=== PATIENT | male | born 1975 | race Caucasian/White ===

== ENCOUNTER 2022-05-07 13:14 | Emergency (ER) | payer MEDICAID ==
[~2022-05-07] VITALS: Ht 190.5 cm; Wt 90.9 kg
[2022-05-07 13:53] LABS: BASOPHILS # (AUTO) 0.1 X10'3 (0-0.2); BASOPHILS % (AUTO) 0.8 % (0-1); EOSINOPHILS # (AUTO) 0.2 X10'3 (0-0.9); EOSINOPHILS % (AUTO) 3.5 % (0-6); HEMOGLOBIN 15.2 g/dl (14.0-17.9); LYMPHOCYTES # (AUTO) 1.8 X10'3 (1.1-4.8); LYMPHOCYTES % (AUTO) 26.5 % (21-51); MEAN CORPUSCULAR HEMOGLOBIN 32.6 PG (27.0-31.0); MEAN CORPUSCULAR HGB CONC 33.7 g/dL (33.0-36.5); MEAN CORPUSCULAR VOLUME 96.7 FL (78-98); MEAN PLATELET VOLUME 7.1 FL (7.4-10.4); MONOCYTES # (AUTO) 0.6 X10'3 (0-0.9); MONOCYTES % (AUTO) 9.5 % (2-12); NEUTROPHILS % (AUTO) 59.7 % (42-75); PLATELET COUNT 241 X10'3 (140-440); RED BLOOD COUNT 4.65 X10'6 (4.70-6.10); RED CELL DISTRIBUTION WIDTH 13.6 % (11.5-14.5); WHITE BLOOD COUNT 6.7 X10'3 (4.5-11.0)
[2022-05-07 14:07] LABS: ALANINE AMINOTRANSFERASE 22 U/L (12-78); ALBUMIN 3.9 G/DL (3.4-5.0); ALBUMIN/GLOBULIN RATIO 1.2 (1.1-1.5); ALKALINE PHOSPHATASE 80 IU/L (46-116); ANION GAP 10 (8-16); ASPARTATE AMINO TRANSFERASE 17 U/L (10-37); BILIRUBIN,TOTAL 0.3 MG/DL (0.1-1.0); BLOOD UREA NITROGEN 18 MG/DL (7-18); BUN/CREATININE RATIO 17.1 (5.4-32.0); CALCIUM 9.2 MG/DL (8.5-10.1); CHLORIDE 102 MMOL/L (99-107); CREATININE 1.05 MG/DL (0.60-1.10); GLUCOSE 122 MG/DL (70-104); LIPASE 101 U/L (73-393); SODIUM 139 MMOL/L (135-145); TOTAL CARBON DIOXIDE 26.8 MMOL/L (24-32); TOTAL PROTEIN 7.2 G/DL (6.4-8.2); eGFR 76 ML/MIN
[2022-05-07 15:07] LABS: CLARITY,URINE CLEAR (Clear); COLOR,URINE YELLOW (Yellow); GLUCOSE, URINE NEGATIVE (Neg); KETONES,URINE NEGATIVE (Neg); LEUKOCYTE ESTERASE ,URINE NEGATIVE (Neg); NITRITES, URINE NEGATIVE (Neg); OCCULT BLOOD,URINE NEGATIVE (Neg); PROTEIN,URINE NEGATIVE (Neg); UROBILINOGEN,URINE 0.2 E.U/dL (0.2-1.0)
[2022-05-07 15:12] LABS: UA COLLECTION TYPE NON-SPECIFIED
[2022-05-07] MEDS ORDERED: iohexol 300mg/ml 100ml inj. ONE (15:59)
[2022-05-07 17:02] VITALS: BP 130/68
== END 2022-05-07 17:03 | disposition home or self-care (01) ==
LOC: ER 13:15
DX: R10.30 Lower abdominal pain, unspecified (principal); F12.10 Cannabis abuse, uncomplicated; Z88.5 Allergy status to narcotic agent; Z90.49 Acquired absence of other specified parts of digestive tract
CPT/HCPCS: 36415; 74177; 80053; 81003; 83690; 85025; 99285; J3490; Q9967

== ENCOUNTER 2024-09-13 10:27 | Emergency (ER) | payer MEDICAID ==
[~2024-09-13] VITALS: Ht 190.5 cm; Wt 95.4 kg
[2024-09-13 10:30] VITALS: BP 105/57; PULSE 62; RESP 16; O2SAT 98
--- NOTE | 2024-09-13 11:20 | RADIOLOGY REPORT ---
CLINICAL INDICATION: pain TECHNIQUE: 3 radiographic views of the right knee were obtained. Comparison: None FINDINGS/IMPRESSION: There is no evidence of acute fracture or dislocation. Chondrocalcinosis The visualized joint space is well maintained. The alignment is anatomical. There is no radiopaque foreign body.
--- NOTE | 2024-09-13 11:39 | Physician Documentation ---
History of Present Illness ~ Chief Complaint: Knee Pain Stated Complaint: KNEE PAIN Time Seen by MD: 10:40 OK to notify your PCP?: Yes Source: patient Mode of Arrival: POV Exam Limitations: no limitations HPI 49-year-old male with chief complaint right knee pain which started suddenly last night. He states he was sitting playing video games when he got up he suddenly felt severe pain in his knee and felt like his knee was unstable. He had a knee surgery [address] Jones. He can not recall what the surgery was four but states it was a piece of bone that had broken off inside his knee joint. He is ambulating using a cane because it hurts to completely weight bear on his knee. No fever, chills, hip pain, calf pain, sob. Tetanus witin 5 years: No Medication Reconciliation Allergies: Coded Allergies: morphine (Unverified Adverse Reaction, Severe, VOMITING, 09/13/24) Scheduled Ibuprofen (Ibuprofen), 1 TAB PO Q8H Scheduled PRN Hydrocodone Bit/Acetaminophen (Hydrocodone-Apap 10-325 Tablet), 1 TAB PO TID PRN for pain Past Medical History Past Medical History: No Pertinent History Past Surgical History: appendectomy Alcohol Use: Rarely Drug Use: marijuana Lives In: Home Review of Systems All Other Systems at this time: Reviewed and Negative Physical Exam Vital Signs: Temperature: 97.2, Source: Temporal, Heart Rate: 62, Respiratory Rate: 16, BP: 105/57, Pulse Oximetry: 98, Weight: 95.400 Physical Exam General Appearance: Alert, WD/WN. NAD. General Appearance: Alert, WD/WN. NAD. HEENT: NCAT, PERRL, EOMI. Neck: Supple, trachea midline. Cardiovascular: RRR. No m/r/g. Lungs: CTAB. Breathing unlabored Extremities: Right knee effusion no erythema, tenderness over the medial anterior joint space, active range motion is slightly decreased due to pain. Normal inspection of thigh and calf no swelling, erythema, no calf tenderness. Skin: Warm/dry, normal color Neurological: Alert and oriented x4, patient ambulating favoring his left leg using a cane with ambulation. Psychiatric: Affect congruent with mood. Progress Results/Orders Results/Orders Vital Signs 09/13/24 10:30 Temp 97.2 Pulse 62 Resp 16 B/P (MAP) 105/57 Pulse Ox 98 EKG/XRAY/CT/US/VASC/MRI Bone/Soft Tissue X-Ray (Ext.) : Additional Comment CLINICAL INDICATION: pain TECHNIQUE: 3 radiographic views of the right knee were obtained. Comparison: None FINDINGS/IMPRESSION: There is no evidence of acute fracture or dislocation. Chondrocalcinosis The visualized joint space is well maintained. The alignment is anatomical. There is no radiopaque foreign body. Medical Decision Making Knee Diff Dx:Considerations: Include: Abrasion, Arthritis, Contusion, DJD, Fracture-femur, Fracture-fibula, Fracture-patella, Fracture-tibia, Gout, Hematoma, Laceration, Meniscus injury, Neurovascular injury, Open fracture, Rheumatoid arthritis, Septic, Sprain, Sprain-MCL, Sprain-LCL, Sprain-ACL, Sprain-PCL, Other Departure Time of Disposition: 11:36 Disposition: 01 HOME / SELF CARE / HOMELESS Impression: Primary Impression: Knee pain Qualified Codes: M25.561 - Pain in right knee Additional Impressions: Chondrocalcinosis Knee effusion, right Condition: Stable Discharge Instructions: Acute Knee Pain, Adult Additional Instructions: I recommend follow up with the primary care provider and get a referral to a customer resolution specialist as chondrocalcinosis can be associated with a rheumatological condition. Another name for chondrocalcinosis is pseudogout. I recommend anti- inflammatories as long as you do not have a contraindication to anti- inflammatories to try to get the swelling down. Chondrocalcinosis can increase your risk for other things such as cartilage or ligament tears and given the knee effusion and acute pain I would recommend outpatient MRI Copy of your x-ray report as below CLINICAL INDICATION: pain TECHNIQUE: 3 radiographic views of the right knee were obtained. Comparison: None FINDINGS/IMPRESSION: There is no evidence of acute fracture or dislocation. Chondrocalcinosis The visualized joint space is well maintained. The alignment is anatomical. There is no radiopaque foreign body. Departure Forms: Excuse form Work or School Excused From: School Excuse beginning now through the following date: September 13, 2024 May Return but still avoid physical Activity from now until: September 14, 2024 Referrals: NO PRIMARY CARE PROVIDER (PCP) Prescriptions Ibuprofen (Ibuprofen) 800 Mg Tablet 1 TAB PO Q8H for pain for 10 Days, #30 TAB 0 Refills Prov: JUANY JIMENEZ 09/13/24 Hydrocodone Bit/Acetaminophen (Hydrocodone-Apap 10-325 Tablet) 10mg/325mg Tablet 1 TAB PO TID PRN for pain for 5 Days, #15 TAB M25.569 Prov: JUANY JIMENEZ 09/13/24 Education Educated: Patient Educated regarding: diagnosis, treatment, need for follow up Signature Scribe Signature: x Attestation: JUANY Marr September 13, 2024 11:39
[2024-09-13] MEDS ORDERED: IBUP-1986 PO (11:46)
[2024-09-13] MEDS ORDERED: HYDR-3973 PO (11:46)
[2024-09-13 11:57] VITALS: TEMP 97.2
== END 2024-09-13 11:59 | disposition home or self-care (01) ==
LOC: ER 10:27
DX: M25.561 Pain in right knee (principal); M11.261 Other chondrocalcinosis, right knee; M25.461 Effusion, right knee; F12.90 Cannabis use, unspecified, uncomplicated; Z88.5 Allergy status to narcotic agent; Z90.49 Acquired absence of other specified parts of digestive tract; Z79.1 Long term (current) use of non-steroidal anti-inflammatories (NSAID)
CPT/HCPCS: 73564; 99283